=== PATIENT | female | born 1980 | race American Indian/Alaskan Native ===

== ENCOUNTER 2018-10-17 18:15 | Emergency (ER) | payer MEDICAID ==
[2018-10-17 18:15] VITALS: BMI 35.1
--- NOTE | 2018-10-17 19:42 | ED PDOC ---
HPI: General Adult Time Seen by Provider: 10/17/18 19:41 Chief Complaint (Nursing): ENT Problem Chief Complaint (Provider): LEFT EAR ITCHING History Per: Patient (38 Y/O FEMALE HERE WITH LEFT EAR ITCHING/PAIN ONGOING X 4 DAYS. NOTES DISCOMFORT BY THROAT BUT ATTRIBUTES TO EAR. NO H/O SEASONAL ALLERGIES.) Past Medical History Reviewed: Historical Data, Nursing Documentation, Vital Signs Vital Signs: Last Vital Signs Temp 99.2 F 10/17/18 19:24 Pulse 82 10/17/18 19:24 Resp 20 10/17/18 19:24 BP 119/76 10/17/18 19:24 Pulse Ox 99 10/17/18 19:24 Primary Care Provider: DoctorLilliam - Family History Family History: States: Unknown Family Hx - Immunization History Hx Tetanus Toxoid Vaccination: No Hx Pneumococcal Vaccination: No - Home Medications Home Medications: Ambulatory Orders Medication Instructions Recorded Cetirizine HCl [Zyrtec] 10 mg PO DAILY #14 tab.rapdis 10/17/18 - Allergies Allergies/Adverse Reactions: Allergies Allergy/AdvReac Type Severity Reaction Status Date / Time No Known Allergies Allergy Verified 10/17/18 19:24 Review of Systems ROS Statement: Except As Marked, All Systems Reviewed And Found Negative Physical Exam - Reviewed Nursing Documentation Reviewed: Yes Vital Signs Reviewed: Yes - Physical Exam Appears: Positive for: Well, Non-toxic, No Acute Distress Head Exam: Positive for: ATRAUMATIC, NORMAL INSPECTION, NORMOCEPHALIC Skin: Positive for: Normal Color, Warm, DRY Eye Exam: Positive for: EOMI, Normal appearance, PERRL ENT: Positive for: Normal ENT Inspection, Pharynx Is (LEFT PHARYNGEAL ERYTHEMA) Neck: Positive for: Normal, Painless ROM Cardiovascular/Chest: Positive for: Regular Rate, Rhythm Respiratory: Positive for: CNT, Normal Breath Sounds Gastrointestinal/Abdominal: Positive for: Normal Exam, Soft Back: Positive for: Normal Inspection Extremity: Positive for: Normal ROM Neurological/Psych: Positive for: Awake, Alert, Normal Tone - ECG O2 Sat by Pulse Oximetry: 99 - Progress ED Course And Treament: rapid strep negative Disposition - Clinical Impression Clinical Impression: Ear discomfort - Patient ED Disposition Is Patient to be Admitted: No - Disposition Referrals: Kwame Estrada MD [Staff Provider] - Disposition: Routine/Home Disposition Time: 21:24 Condition: FAIR Prescriptions: Cetirizine HCl [Zyrtec] 10 mg PO DAILY #14 tab.[email or web address] Instructions: Seasonal Allergies in Adults
[2018-10-17 21:52] VITALS: BP 127/74; PULSE 79; RESP 15; TEMP 98.9; O2SAT 98
== END 2018-10-17 21:52 | disposition home or self-care (01) ==
LOC: H.ER 18:15
DX: H93.92 Unspecified disorder of left ear (principal)